=== PATIENT | female | born 1960 | race African-American/Black ===

== ENCOUNTER 2021-07-20 17:26 | Emergency (ER) | payer OTHER ==
[2021-07-20 17:38] VITALS: BP 164/87; PULSE 68; TEMP 98.1; BMI 39.9
[2021-07-20] MEDS ORDERED: KETOROLAC TROMETHAMINE 30 MG/1 ML VIAL IM ONE (18:24)
[2021-07-20] MEDS ORDERED: KETOROLAC TROMETHAMINE 30 MG/1 ML VIAL ONE (18:28)
== END 2021-07-20 20:08 | disposition home or self-care (01) ==
LOC: JERFT 17:26
PROC: 3E0233Z Introduction of Anti-inflammatory into Muscle, Percutaneous Approach (ICD-10-PCS; principal; 2021-07-20)
DX: M54.2 Cervicalgia (principal); R20.2 Paresthesia of skin
CPT/HCPCS: 72125-TC; 96372; 99284-25